=== PATIENT | female | born 1970 | race Caucasian/White ===

== ENCOUNTER 2016-07-23 10:34 | Emergency (ER) | payer BC ==
[2016-07-23 10:58] VITALS: BP 123/68
--- NOTE | 2016-07-23 12:31 | UC ---
UC General HPI - HPI Summary HPI Summary: complaint of sore on her back that she noticed 2-3 days ago slightly painful when there is pressure on it has been getting bigger and has some yellow exudate denies fever and chills used some tea tree oil on it without relief - History of Current Complaint Chief Complaint: UCSkin Stated Complaint: SORE ON BACK Time Seen by Provider: 07/23/16 12:23 Hx Obtained From: Patient - Allergy/Home Medications Allergies/Adverse Reactions: Allergies Allergy/AdvReac Type Severity Reaction Status Date / Time No Known Allergies Allergy Verified 10/07/15 22:18 PMH/Surg Hx/FS Hx/Imm Hx Previously Healthy: Yes Endocrine History Of: Denies: Diabetes, Thyroid Disease Cardiovascular History Of: Denies: Cardiac Disorders, Hypertension Respiratory History Of: Denies: COPD, Asthma GI/ History Of: Denies: Ulcer Cancer History Of: Denies: Breast Cancer - Surgical History Surgical History: None - Family History Known Family History: Negative: Cardiac Disease, Hypertension, Diabetes - Social History Occupation: Employed Full-time Lives: With Family Alcohol Use: Occasionally Substance Use Type: None Smoking Status (MU): Never Smoked Tobacco Review of Systems Constitutional: Negative Skin: Other - sore on back ENT: Negative Respiratory: Negative Cardiovascular: Negative Gastrointestinal: Negative Genitourinary: Negative Motor: Negative Neurovascular: Negative Musculoskeletal: Negative Neurological: Negative Psychological: Negative All Other Systems Reviewed And Are Negative: Yes Physical Exam Triage Information Reviewed: Yes Appearance: Well-Appearing Vital Signs: Initial Vital Signs Temp 97.7 F 07/23/16 10:54 Pulse 92 07/23/16 10:54 Resp 18 07/23/16 10:54 BP 123/68 07/23/16 10:54 Pulse Ox 100 07/23/16 10:54 Vital Signs Reviewed: Yes Eyes: Positive: Conjunctiva Clear ENT: Positive: Pharynx normal, TMs normal Neck: Positive: No Lymphadenopathy Respiratory: Positive: Lungs clear, Normal breath sounds, No respiratory distress Cardiovascular: Positive: RRR, No Murmur, Pulses Normal Abdomen Description: Positive: Nontender, Soft Bowel Sounds: Positive: Present Musculoskeletal: Positive: No Edema Psychological Exam: Normal Skin: Positive: Other - middle of back with erythematous irregular area 2cmx 1cm with crusted yellow exudate Course/Dx - Differential Dx - Multi-Symptom Differential Diagnoses: Other - abscess, cellulitis, impetigo, shingles Provider Diagnoses: impetigo Discharge - Discharge Plan Condition: Stable Disposition: HOME Prescriptions: Cephalexin CAP* [Keflex 500 CAP*] 500 mg PO TID #21 cap Mupirocin 2% OINT* [Bactroban 2 % Oint*] 1 applic TOPICAL BID #1 tube Patient Education Materials: Impetigo (ED) Referrals: Jacki Dennis LUNCHROOM SUPERVISOR [Primary Care Provider] - Additional Instructions: Start antibiotic and bactroban as directed Increase fluids and rest Take acetaminophen or ibuprofen for fever or pain Please review your discharge instructions. If your symptoms do not improve please call your primary care provider or return to urgent care
== END 2016-07-23 12:38 | disposition home or self-care (01) ==
LOC: UCEAST 10:34
DX: L01.00 Impetigo, unspecified (principal)
CPT/HCPCS: 99212; G0463

== ENCOUNTER 2017-01-28 17:44 | Emergency (ER) | payer BC ==
[2017-01-28 17:56] VITALS: BP 126/68
--- NOTE | 2017-01-28 18:58 | UC ---
Skin Complaint HPI - HPI Summary HPI Summary: Patient presents to the with CC of tick to the right mid to low back with surrounding erythema. She is unsure the length of time the tick has been attached. She notes to soreness over the area. She endorses bilaterally elbow and knee pain not improved with ibuprofen. She has been having intermittent GUTHRIE not worse or better with medication. She states she has just been feeling generally ill for 2-3 days. removed tick this am. Denies fevers, sweats or chills. - History of Current Complaint Chief Complaint: UCSkin Time Seen by Provider: 01/28/17 18:21 Stated Complaint: TICK BITE Hx Obtained From: Patient Hx Last Menstrual Period: 2 weeks ago ?: No Onset/Duration: Sudden Onset Skin Exposure Onset/Duration: Hours Ago Timing: Constant Onset Severity: Moderate Current Severity: Moderate Pain Intensity: 4 Pain Scale Used: 0-10 Numeric Location: Discrete - right mid back Aggravating Factor(s): Nothing Alleviating Factor(s): Nothing Related History: Insect Bite/Sting - Allergy/Home Medications Allergies/Adverse Reactions: Allergies Allergy/AdvReac Type Severity Reaction Status Date / Time No Known Allergies Allergy Verified 01/28/17 17:56 Review of Systems Constitutional: Negative Skin: Negative Respiratory: Negative Cardiovascular: Negative Gastrointestinal: Negative Motor: Negative Neurovascular: Negative Musculoskeletal: Negative - elbows and knees, Arthralgia Neurological: Negative Is Patient Immunocompromised?: No All Other Systems Reviewed And Are Negative: Yes PMH/Surg Hx/FS Hx/Imm Hx Previously Healthy: Yes - Surgical History Surgical History: Yes Surgery Procedure, Year, and Place: C Section - Family History Known Family History: Negative: Cardiac Disease, Hypertension, Diabetes - Social History Occupation: Employed Full-time Lives: With Family Alcohol Use: None Substance Use Type: None Smoking Status (MU): Never Smoked Tobacco Physical Exam Triage Information Reviewed: Yes Appearance: Well-Appearing, No Pain Distress, Well-Nourished Vital Signs: Initial Vital Signs Temp 98.8 F 01/28/17 17:51 Pulse 100 01/28/17 17:51 Resp 18 01/28/17 17:51 BP 126/68 01/28/17 17:51 Pulse Ox 100 01/28/17 17:51 Vital Signs Reviewed: Yes Eye Exam: Normal Eyes: Positive: Conjunctiva Clear Neck exam: Normal Neck: Positive: Nontender, No Lymphadenopathy Respiratory Exam: Normal Respiratory: Positive: Chest non-tender, Lungs clear Cardiovascular Exam: Normal Cardiovascular: Positive: RRR Musculoskeletal Exam: Normal Musculoskeletal: Positive: Strength Intact Neurological Exam: Normal Neurological: Positive: Alert Psychological: Positive: Normal Response To Family, Age Appropriate Behavior Skin: Positive: significant lesion(s) - right mid to low back measuring 4cm with surrounding erythema. No EM rash noted Course/Dx - Course Course Of Treatment: Kai is evaluated for possible lyme disease. She is having GUTHRIE and joint pains. Denies fevers, sweats and chills. She has been feeling ill x 2 days. She has had the course of doxy in the past. She is given doxycycline 14 days based on symptoms and known tick bite. She is to follow up with her PCP in 3 weeks for a lyme titer. She agrees to plan and is OK with discharge. - Differential Diagnoses - Skin Complaint Differential Diagnoses: Drug Rash, Poison [place], Poison [place], Tick Born Illness - Diagnoses Provider Diagnoses: Tick bite Discharge - Discharge Plan Condition: Stable Disposition: HOME Prescriptions: DOXYcycline CAP(*) [DOXYcycline 100MG CAP(*)] 100 mg PO BID #28 cap Patient Education Materials: Lyme Disease (ED), Tick Bite (ED) Referrals: Jacki Dennis SENIOR PRODUCT MANAGER [Primary Care Provider] - Additional Instructions: Tick Bite: Approach to prophylaxis : According to the Infectious Diseases Society of [place] (IDSA) guidelines that recommend antibiotic prophylaxis only in patients who meet all of the following criteria: 1. Attached tick identified as an adult or nymphal I. scapularis tick (deer tick). 2. Tick is estimated to have been attached for 36 hours (by degree of engorgement or time of exposure). 3. Prophylaxis is begun within 72 hours of tick removal. Local rate of infection of ticks with B. burgdorferi is 20 percent if attached for over 48 hours (these rates of infection have been shown to occur in parts of [place], parts of the [facility], and parts of [place] and [place]). If you experience a tick and time of attachment is believed to be less than 36 hours, you may remove the tick with head intact and no need for prophylaxis. If over 36 hours, please come into UC. Prophylactic doxycycline is not recommended for ticks attached less than 36 hours. Doxycycline: Take 1 cap twice daily for 14 days
== END 2017-01-28 18:36 | disposition home or self-care (01) ==
LOC: UCEAST 17:44
DX: S30.860A Insect bite (nonvenomous) of lower back and pelvis, initial encounter (principal); W57.XXXA Bitten or stung by nonvenomous insect and other nonvenomous arthropods, initial encounter; Y92.9 Unspecified place or not applicable
CPT/HCPCS: 99212; G0463

== ENCOUNTER 2018-01-16 10:03 | Observation (INO) | payer BC ==
[2018-01-16] MEDS ORDERED: Naproxen TAB* 250 MG ONE (10:59)
[2018-01-16] MEDS ORDERED: Scopolamine 1.5 mg* PATCH ONE (10:59)
[2018-01-16] MEDS ORDERED: LORazepam TAB(*) 1 MG ONE (11:00)
[2018-01-16] MEDS ORDERED: oxyCODONE SR TAB(*) 10 MG TAB.SR ONE (11:00)
[2018-01-16] MEDS ORDERED: Ondansetron INJ* 2 MG/ML VIAL ONE ×2 (11:01→14:14)
[2018-01-16 11:49] LABS: EGFR Non-African American 83.6 (>60)
[2018-01-16] MEDS ORDERED: HYDROmorphone PCA* 20 MG/20 ML PCA.SYRING PCA SCH (12:00)
[2018-01-16] MEDS ORDERED: fentaNYL* 50 MCG/ML 5 ML VIAL (250 MCG VIAL) ONE (13:39)
[2018-01-16] MEDS ORDERED: Flumazenil* 0.1 MG/ML 5 ML MDV ONE (13:39)
[2018-01-16] MEDS ORDERED: Midazolam* 1 MG/ML 10 ML VIAL (10 MG) ONE (13:39)
[2018-01-16] MEDS ORDERED: Naloxone* 0.4 MG/ML 1 ML VIAL ONE (13:39)
[2018-01-16] MEDS ORDERED: Lidocaine 1% INJ* 10 MG/ML 30 ML SDV ONE (13:40)
[2018-01-16] MEDS ORDERED: Heparin(*) 1000 UNIT/ML 10 ML VIAL CATH LAB IV ONE (13:40)
[2018-01-16] MEDS ORDERED: Iohexol 350 (CONTRAST) 200 ML MDV IV ONE (13:40)
[2018-01-16] MEDS ORDERED: Heparin 2 UNITS/ML IVPREMIX* 2,000 ML IV ONE (13:41)
[2018-01-16] MEDS ORDERED: Ketorolac INJ* 30 MG/ML 1 ML VIAL ONE ×2 (13:54→16:03)
[2018-01-16] MEDS ORDERED: nitroGLYCERIN DRIP* 25,000 MCG/250 ML BTL ONE (13:57)
[2018-01-16] MEDS ORDERED: Clindamycin 900 MG IVPREMIX(* 900 MG/50 ML SDV IV ONE (14:00)
[2018-01-16] MEDS ORDERED: HYDROmorphone PCA* 20 MG/20 ML PCA.SYRING ONE (16:33)
[2018-01-16] MEDS ORDERED: NS 0.9% 1000 ML* 1,000 ML IV SCH (18:45)
--- NOTE | 2018-01-16 19:52 | RAD ---
CPT II Codes: G9500 Procedure(s) performed: * Pelvic arteriogram including the lower abdominal aorta, bilateral iliac arteries including the proximal portions of the superficial femoral arteries and femoral profundi. * Catheter arteriography of the bilateral uterine arteries. * Catheter embolization of the bilateral uterine arteries. Date of service: January 16, 2018 Indication for procedure: Heavy menstrual bleeding, pelvic pain and urinary bladder symptoms in the presence of multiple large uterine fibroids Comparison: Pelvic ultrasound dated September 19, 2017 Contrast: 140 mL Omnipaque 350 Fluoroscopy Time: 31.7 minutes Vessels Accessed: Percutaneous access was obtained with ultrasound guidance in the right common femoral artery in the retrograde direction towards the heart. Catheter arteriography was performed with the catheter tip in the following arteries: Right external iliac artery, bilateral common iliac arteries, bilateral internal iliac arteries and bilateral uterine arteries Anesthesia: Conscious sedation with IV Fentanyl and Versed as well as local 1% lidocaine injected locally at the arteriotomy site. Conscious sedation time: Timeout: 1425 hours Case end: 1625 hours Total conscious sedation time: 2 hours Additional medications: * 700 mcg IA nitroglycerin injected intermittently throughout the course of the procedure to alleviate arterial spasm. * Intra-arterial Toradol, 15 mg injected into each uterine artery, for a total of 30 mg intra-arterial. * Intravenous Toradol, 20 mg. * Prior to the procedure the patient received: Ativan 1 mg p.o. Naproxen sodium 250 mg p.o. OxyContin 10 mg p.o. Scopolamine patch 1.5 mg transdermal applied to the mastoid process. Zofran 4 mg IV Antibiotic prophylaxis was provided by Clindamycin 900 mg IV PROCEDURE NOTE AND INTRAPROCEDURAL IMAGING FINDINGS: Immediately prior to the procedure the patient signed consent after thoroughly discussing all risks and benefits. The patient was positioned on the fluoroscopy table in the supine position and the bilateral groins were shaved, prepped and draped in standard sterile fashion. In the holding area sonographic imaging of the patient's right radial and ulnar arteries was obtained at the bedside for the purpose of possible radial access. The right radial and ulnar arteries measure 0.18 cm and 0.15 cm respectively. Due to the small caliber, radial access was declined. Using fluoroscopic imaging the location of the right common femoral head was marked externally with a skin marker on the patient's groin. Utilizing sonographic guidance and palpation the right common femoral artery was cannulated overlying the right femoral head with an 18-gauge needle. An ultrasound image was saved. A 0.035 inch Conduit Labsson wire was slowly and smoothly advanced to the aortic bifurcation under fluoroscopic imaging. No buckling of the wire was visualized to indicate dissection. Over the wire a 5-Malian SideArm sheath was advanced into the artery, the inner stiffener removed and contrast arteriography with the tip of the sheath in the right external iliac artery demonstrated appropriate right common femoral arteriotomy with no signs of extravasation or dissection. Utilizing a 0.035" wire and 5-Malian C2 catheter the contralateral left common iliac artery was accessed. Contrast arteriography with the tip of the catheter in the right common femoral artery demonstrates the right iliac arterial system including the right uterine artery. A 0.035 inch hydrophilic wire was readvanced into the catheter. The wire was advanced under fluoroscopic control to the proximal left superficial femoral artery. The C2 catheter was removed and over the wire a 5 Malian Merit Impress catheter was advanced over the iliac bifurcation and the reverse curve was formed in the lower abdominal aorta. Utilizing the reverse curve catheter and the wire the ipsilateral right common iliac artery was selected. With the tip of the catheter in the proximal most portion of the right internal iliac artery, angiography was performed to detail the branches of the right internal iliac artery and to locate the ostium of the right uterine artery. Arteriograms in multiple oblique projections were performed to best discern the branch point of the uterine artery. The uterine artery was selected and cannulated utilizing the combination 0.035" wire and 5-Malian catheter. In order to ensure maximum arterial inflow for the purpose of particle distribution, a microcatheter and wire system were advanced into the 5-Malian catheter securing access into the uterine artery. Under careful fluoroscopic control access was maintained in the uterine artery while pushing back the 5-Malian catheter until the tip resided more superiorly in the internal iliac artery. Prior to embolization, contrast injection into the horizontal portion of the uterine artery demonstrated no large, obvious collateral blood flow to the ovary or a definite cervicovaginal branch descending inferiorly. Intra-arterial nitroglycerin was injected intermittently to alleviate arterial spasm. Under fluoroscopic control approximately 3 vials 600 micron HydroPearls and 2 vials 800 um HydroPearls were slowly injected into the right uterine artery to near complete stasis. Towards the end of embolization 15 mg of Toradol was injected intra-arterially. The microcatheter was pulled back into the more proximal descending portion of the uterine artery and contrast angiography depicted near complete stasis of the uterine artery. The microcatheter and microwire were removed. Contrast arteriography through the 5-Malian catheter in the right internal iliac artery demonstrated patency and brisk flow through all branches of the internal iliac artery with the exception of the right uterine artery which demonstrates near complete stasis. The 0.035" wire was reinserted into the 5-Malian catheter and the system was utilized to access the contralateral left internal iliac artery. Ovary hydrophilic wire, the Impress was exchanged for the 5-Malian C2 catheter. With the tip of the 5 Malian C2 catheter in the proximal most portion of the left internal iliac artery, angiography was performed to detail the branches of the left internal iliac artery and to locate the ostium of the left uterine artery. Arteriograms in multiple oblique projections were performed to best discern the branch point of the uterine artery. The uterine artery was selected and cannulated utilizing the combination 0.035" wire and 5-Malian catheter. In order to ensure maximum arterial inflow for the purpose of particle distribution, the microcatheter and wire system were advanced into the 5-Malian catheter securing access into the uterine artery. Under careful fluoroscopic control access was maintained in the uterine artery while pushing back the 5-Malian catheter until the tip resided more superiorly in the internal iliac artery. Prior to embolization, contrast injection into the horizontal portion of the left uterine artery demonstrated no large, obvious collateral blood flow to the ovary or a definite cervicovaginal branch descending inferiorly. Intra-arterial nitroglycerin was injected intermittently to alleviate arterial spasm. Under fluoroscopic control approximately 1 vial 600 micron HydroPearls and almost 2 vials 800 um HydroPearls (satisfactory stasis was achieved before injecting the entire contents of the second vial) were slowly injected into the left uterine artery to near complete stasis. Towards the end of embolization 15 mg of Toradol was injected intra-arterially. The microcatheter was pulled back into the more proximal descending portion of the uterine artery and contrast angiography depicted near complete stasis of the uterine artery. The microcatheter and microwire were removed. Contrast arteriography through the 5-Malian catheter in the left internal iliac artery demonstrated patency and brisk flow through all branches of the internal iliac artery with the exception of the left uterine artery which demonstrates near complete stasis. A 0.035 inch wire was reinserted into the 5-Malian C2 catheter and both were removed. The access sheath was removed and pressure was held at the common femoral arteriotomy for approximately 15 minutes. There were no signs of bleeding at the right groin access site and the site was dressed with sterile gauze and Tegaderm. The patient tolerated the procedure well and was transferred to the short stay recovery unit in stable condition for routine overnight observation and pain and nausea control. SUMMARY OF PROCEDURE, IMAGING FINDINGS AND INTERVENTIONS PERFORMED: 1. Diagnostic studies performed: * Arterial access was obtained at the right common femoral artery in the retrograde direction (i.e. towards the heart) with ultrasound guidance. A sonographic image was recorded. * Diagnostic catheter angiography (necessary to perform the appropriate interventions) was performed with the catheter tip in the bilateral common iliac arteries, bilateral internal iliac arteries and bilateral uterine arteries. * Catheter arteriography was performed of the bilateral iliac arterial system and specifically the bilateral uterine arteries. 2. Interpretation of diagnostic studies performed: * Right dominant, hypertrophied uterine arteries bilaterally providing arterial flow to the patient's fibroid uterus. 3. Surgical interventions performed: * Near stasis embolization of the bilateral uterine arteries utilizing: * Right uterine artery: 3 vials 600 micron HydroPearls and 2 vials 800 um HydroPearls * Left uterine artery: 1 vial 600 micron HydroPearls and < 2 vials 800 um HydroPearls 4. Interpretation of interventions performed: * Final arteriography demonstrated near complete stasis of the bilateral uterine arteries.. PLAN: 1. The patient will be admitted to short stay surgical unit for routine overnight observation including pain and nausea control. 2. Outpatient clinical and imaging follow-up according to the Interventional Radiology protocol.
--- NOTE | 2018-01-16 20:05 | PN ---
Progress Note - Progress Note Date of Service: 01/16/18 SOAP: Subjective: Pain rated at 2/10, "crampy, but not too bad". Episodes of nausea (now passed), but no emesis. Has drank clear fluids so far. Clear yellow urine in Daily bag. Objective: Selected Entries 01/16/18 01/16/18 18:33 19:41 Temperature 98.4 F Temperature Oral Source Pulse Rate 78 Respiratory 18 Rate Blood Pressure 108/55 (mmHg) O2 Sat by Pulse 96 Oximetry NAD, Sleep, but arousable to voice Abd is soft, minimally tender to palpation over suprapubic area Right groin is soft, nontender Dressing is CDI 2+ pulses at right [employer], pop and dpa Right leg is grossly neuromuscular intact Assessment: 47 YOF s/p Uterine Fibroid Arterial Embolization. Pain and nausea are adequately controlled. Plan: 1. Standard Interventional Radiology post UFE management as well as pain & nausea control. 2. Bedrest ends at 2200 hours. Daily catheter will be removed at the same time. 3. Will see patient tomorrow AM.
[2018-01-16] MEDS: Ketorolac INJ* 15 MG/ML 1 ML VIAL IV PUSH SCH (21:52)
[2018-01-16] MEDS: Ondansetron INJ* 2 MG/ML VIAL IV SCH (21:54)
--- NOTE | 2018-01-16 22:01 | HP ---
ADMITTING HISTORY AND PHYSICAL: DATE OF ADMISSION: 01/16/18 CHIEF COMPLAINT: Elective uterine artery embolization. HISTORY OF PRESENT ILLNESS: The patient is a 47-year-old obese lady with no documented nor significant past medical history, who was recently by her primary care physician for preoperative evaluation for uterine artery embolization due to her dysmenorrhea due to uterine fibroids and she underwent embolization of her uterine artery and per Dr. Maya has done well perioperatively. She was in PACU with stable vital signs and feeling well except for complaints of cramping sensation around her hypogastric area. PAST MEDICAL AND SURGICAL HISTORY: Status post section x1. No documented past medical or other surgical history noted. HOME MEDICATIONS: None. ALLERGIES: None/NKDA. FAMILY HISTORY: Diabetes and heart disease, both her mother and maternal grandfather. SOCIAL HISTORY: Denies any history of smoking, alcohol abuse or IV drug use. She is and lives with her and 6 children. REVIEW OF SYSTEMS: Intermittent cramping sensation on her hypogastric area, otherwise denied any recent headaches, dizziness, fevers, chills, nausea, vomiting, chest pain, shortness of breath, increased cough nor sputum production , diarrhea, constipation, pain and/or increased frequency on urination, myalgias , arthralgias, throat pain, or new skin lesions. The rest of the 14-point review of systems are otherwise unremarkable. PHYSICAL EXAMINATION GENERAL APPEARANCE: The patient is awake, alert, and oriented x1, not in acute distress, the patient is morbidly obese VITAL SIGNS: Shows the most recent vital signs of record with blood pressure of 125/68, 97% saturation at 3 L nasal cannula, 76 beats per minute heart rate. HEENT: Normocephalic, atraumatic. PERRLA. Extraocular muscles intact. Negative for icterus. Moist oral mucosa. Negative throat erythema. NECK: Soft, supple with no cervical lymphadenopathy. No JVD. CHEST: Clear to auscultation bilaterally. Good air entry. No wheezes, rales, or rhonchi. HEART: S1, S2 within normal limits. Regular rate and rhythm. No murmurs, rubs , or gallops. ABDOMEN: Soft, nondistended, nontender. Normoactive bowel sounds x4. EXTREMITIES: No cyanosis, clubbing, or edema. PSYCHIATRIC: No active psychosis, depression, suicidal or homicidal ideations. SKIN: Warm to touch. LABORATORIES AND RADIOLOGICAL DATA: Most recent pertinent laboratories reveals a sodium and potassium of 139 and 4.1, BUN and creatinine of 9 and 0.7. Beta HCG is less than 0.6. ASSESSMENT AND PLAN: The patient is a 47-year-old morbidly obese lady with no other documented past medical history other than fibroids leading to dysmenorrhea leading to anemia status post UFE. 1. Uterine fibroid status post UFE. I have discussed her case with Dr. Maya and we will admit the patient for observation overnight. We will place the patient in overnight telemetry in short-stay surgical unit and will check morning labs. We will touch base with Dr. Maya in the a.m. for possible discharge in the a.m. 2. DVT prophylaxis. We will place the patient on SCDs. 5. Disposition. For PT eval, for discharge planning, for possible discharge in the a.m. [id number]/[facility] #: [id number] MTDD
[2018-01-17] MEDS: Ketorolac INJ* 15 MG/ML 1 ML VIAL IV PUSH SCH (05:27)
[2018-01-17] MEDS: Ondansetron INJ* 2 MG/ML VIAL IV SCH (05:30)
[2018-01-17 06:25] LABS: Hematocrit 27 % (35-47); Hemoglobin 8.3 g/dl (12.0-16.0); Mean Corpuscular HGB Conc 31 g/dl (31-36); Mean Corpuscular Hemoglobin 23 pg (27-31); Mean Corpuscular Volume 74 fL (80-97); Mean Platelet Volume 8.5 um3 (7.4-10.4); Platelet Count 408 10^3/ul (150-450); Red Cell Distribution Width 20 % (10.5-15); White Blood Count 12.7 10^3/ul (3.5-10.8)
[2018-01-17 06:43] LABS: EGFR Non-African American 102.2 (>60)
[2018-01-17] MEDS ORDERED: Calcium Gluconate INJ* 2 GM in NS 0.9% 100 ML* 100 ML IV ONE (07:42)
[2018-01-17] MEDS ORDERED: HYDROcodone/ACETAMIN 5-325 MG* 1 TAB PO PRN (08:36)
[2018-01-17] MEDS ORDERED: Ondansetron TAB* 4 MG PO SCH (08:45)
[2018-01-17] MEDS ORDERED: Ketorolac TAB * 10 MG TAB PO SCH (08:45)
--- NOTE | 2018-01-17 08:56 | PN ---
Progress Note - Progress Note Date of Service: 01/17/18 SOAP: Subjective: According to the patient's nurse (Tanna glass and [place] today) the patient has been drinking clear fluids and eating crackers. Pain and nausea is controlled. Patient denies right groin pain. Objective: Selected Entries 01/17/18 01/17/18 04:23 06:00 Temperature 97.7 F Temperature Temporal Artery Source Scan Pulse Rate 72 Respiratory 18 Rate Blood Pressure 107/55 (mmHg) Blood Pressure 67 Mean O2 Sat by Pulse 99 Oximetry Assessment: 47 YOF POD #1 s/p Uterine Fibroid Arterial Embolization with controlled pain and nausea. Post UFE care discussed with Dr. Martins. Plan: 1. Routine Interventional Radiology follow up will include RN clinic follow up telephone calls 01/19/18 and Friday. 01/23/18. Follow up in the clinic with Dr. Maya will be scheduled in 6 weeks and 6 months. 2. Outpatient Rx regimen will include: Toradol 10 mg PO Q 6 hours x 3 days, dispense #15, 1 refill AFTER 3 days of Toradol, start Naproxen 250 mg PO every 12 hours x 3 days (DO NOT COMBINE TORADOL AND NAPROXEN) [place] 5/325 1 or 2 tablets PO Q 6 hours PRN x 5 days, dispense #30 (thirty), no refills Zofran 4 mg PO Q 6 hours x 5 days, dispense #30, 1 refill Scopoloamine 1.5 mg TD patch: on the morning of Friday, replace current patch with new patch and wear x 3 days 3. Patient strongly advised to purchase laxative tea (E.g. Smooth Move) and drink one cup daily x 1 week to avoid constipation.
[2018-01-17 10:28] VITALS: BP 109/50
--- NOTE | 2018-01-17 20:50 | DS ---
CC: Dr. Maya; Jacki Dennis NP DISCHARGE SUMMARY: DATE OF ADMISSION: 01/17/18 DISCHARGE DIAGNOSES: 1. Uterine fibroids, status post uterine fibroid embolization. 2. Hypocalcemia, corrected. 3. Anemia, iron studies pending. The patient has home ferrous sulfate supplementation likely due to diagnosed iron deficiency anemia, as mentioned iron studies pending along with B12 and folate levels. 4. Leukocytosis, likely reactive post uterine fibroid embolization. HISTORY OF PRESENT ILLNESS/HOSPITAL COURSE: The patient is a 47-year-old obese lady with no documented nor significant past medical history, other than possible iron deficiency anemia, who underwent elective embolization for uterine artery due to dysmenorrhea secondary to uterine fibroids. Her perioperative course was otherwise unremarkable and I had discussed her case prior to her discharge with Dr. Maya, who recommended the medications stipulated below in addition to continuing her home medications, which is only ferrous sulfate. Also discussed the mild leukocytosis the patient has POD #1 who mentioned that this is not unusual post UFE and likely indicative of reactive leukocytosis as previously discussed. The patient had been advised to follow Dr. Maya's discharge instruction as had been given to her to take her medications as prescribed and to follow up with her PCP within three days post DC and to follow up on the results of the iron studies, B12, and folate levels. REVIEW OF SYSTEMS: The patient denied any recent headaches, dizziness, fevers, chills, nausea, vomiting, chest pain, shortness of breath, increased cough, sputum production, abdominal pain, diarrhea, constipation, pain, and/or increased frequency of urination, myalgias, arthralgias, throat pain or new skin lesions. The rest of the 14-point review of systems are otherwise unremarkable. PHYSICAL EXAMINATION: GENERAL APPEARANCE: The patient is awake, alert, and oriented x3, not in acute distress, the patient is obese. VITAL SIGNS: Reveals the most recent vital signs of records with blood pressure of 109/50, saturating at 100% on room air, 16 per minute respiratory rate, 72 beats per minute heart rate, temperature of 98.5 degrees Fahrenheit. HEENT: Normocephalic, atraumatic. PERRLA. Extraocular muscles intact. Negative for icterus. Moist oral mucosa. Negative throat erythema. NECK: Soft, supple with no cervical lymphadenopathy. No JVD. CHEST: Clear to auscultation bilaterally. Good air entry. No wheezes, rales, or rhonchi. HEART: S1, S2 within normal limits. Regular rate and rhythm. No murmurs, rubs , or gallops. ABDOMEN: Soft, nondistended, nontender. Normoactive bowel sounds x4Q. EXTREMITIES: No cyanosis, clubbing, or edema. PSYCHIATRIC: No active psychosis, depression, suicidal nor homicidal ideations. SKIN: Warm to touch. DISCHARGE MEDICATIONS: Are as follows: 1. Woodland 5/325 two tab p.o. q.6 p.r.n. 16 tabs dispensed with 0 refills; the patient had been advised to call either her PCP and/or Dr. Maya if she will need refills for Woodland. 2. Ketorolac 10 mg p.o. q.6. p.r.n., dispensed 12 with refills of 0. 3. Zofran 4 mg p.o. q.6 p.r.n. for five days, dispensed 20. 4. Ferrous sulfate 325 mg p.o. daily. 5. Naproxen 250 mg p.o. b.i.d. for three days. 6. Ondansetron 4 mg p.o. q.6 p.r.n. for five days, dispensed 20 tabs with 0 refills. 7. Scopolamine 1.5 mg patch q.72 hours two patches dispensed with 0 refills. TIME SPENT: Total time spent evaluating the patient, reviewing pertinent data and appropriate documentation is 40 minutes. [id number]/[facility] #: [id number] [facility]
== END 2018-01-17 13:00 | disposition home or self-care (01) ==
LOC: CHICATH 10:03 → SSU 17:58
PROVIDERS: ADMIT Student in an Organized Health Care Education/Training Program; ATTEND Student in an Organized Health Care Education/Training Program
DX: D25.9 Leiomyoma of uterus, unspecified (principal); E83.51 Hypocalcemia; D64.9 Anemia, unspecified; D72.829 Elevated white blood cell count, unspecified; Z79.899 Other long term (current) drug therapy; Z83.3 Family history of diabetes mellitus; Z82.49 Family history of ischemic heart disease and other diseases of the circulatory system
CPT/HCPCS: 36415; 37243; 75736; 76937; 80048; 80053; 82330; 82607; 82728; 82746; 83540; 83550; 83735; 84100; 84702; 85027; 96365; 96375; 96376; 99156; 99157; A9270-GY; C1884; C1887; G0378; J0610; J1170; J1644; J1885; J2250; J2310; J2405; J3010

== ENCOUNTER 2018-08-31 18:06 | Emergency (ER) | payer BC ==
[2018-08-31 18:46] VITALS: BP 135/83
--- NOTE | 2018-08-31 19:30 | UC ---
Dental HPI - HPI Summary HPI Summary: 48 yo female presents with tooth pain. She admits that she has "bad teeth" and has a broken tooth at the back lower left. Over the last 3 days has developed pain and swelling to the area. She made an appointment with her dentist, but they cannot see her for 1 month. She is tolerating po well. Denies fever or chills. - History of Current Complaint Chief Complaint: UCDentalProblem Stated Complaint: TOOTHACHE Time Seen by Provider: 08/31/18 19:30 Hx Obtained From: Patient Hx Last Menstrual Period: [id number] Onset/Duration: Gradual Onset Severity: Severe Pain Intensity: 9 Pain Scale Used: 0-10 Numeric - Allergies/Home Medications Allergies/Adverse Reactions: Allergies Allergy/AdvReac Type Severity Reaction Status Date / Time No Known Allergies Allergy Verified 08/31/18 18:46 Home Medications: Home Medications Naproxen [Naproxen 250 mg tab] 250 mg PO BID PRN 08/31/18 [History Confirmed 10/14] PMH/Surg Hx/FS Hx/Imm Hx - Additional Past Medical History Additional PMH: ROMI - Surgical History Surgical History: Yes Surgery Procedure, Year, and Place: C Section- 1x - Family History Known Family History: Negative: Cardiac Disease, Hypertension, Diabetes - Social History Lives: With Family Alcohol Use: Rare Substance Use Type: None Smoking Status (MU): Never Smoked Tobacco Review of Systems All Other Systems Reviewed And Are Negative: Yes Constitutional: Positive: Negative Skin: Positive: Negative Eyes: Positive: Negative ENT: Positive: Dental Pain Respiratory: Positive: Negative Cardiovascular: Positive: Negative Neurological: Positive: Negative Psychological: Positive: Negative Physical Exam - Summary Physical Exam Summary: GENERAL: NAD. WDWN. No pain distress. SKIN: No rashes, sores, lesions, or open wounds. HEENT: Head: AT/NC Nose: Nasal mucosa pink and moist. NTTP maxillary and frontal sinus. Throat: Posterior oropharynx without exudates, erythema, or tonsillar enlargement. Uvula midline. NECK: Supple. Nontender. No lymphadenopathy. CHEST: No accessory muscle use. Breathing comfortably and in no distress. CV: Pulses intact. Cap refill <2seconds NEURO: Alert. PSYCH: Age appropriate behavior. Triage Information Reviewed: Yes Vital Signs: Initial Vital Signs Temp 97.9 F 08/31/18 18:43 Pulse 84 08/31/18 18:43 Resp 20 08/31/18 18:43 BP 135/83 08/31/18 18:43 Pulse Ox 100 08/31/18 18:43 Vital Signs Reviewed: Yes Dental: Positive: Percussion Tenderness @ - Tooth #31, Gross Decay/Caries @ - throughout, Dental Fracture @ - Tooth #31, Abscess @ - Tooth #31 Dental Complaint Course/Dx - Course Course Of Treatment: Tooth #31 abscess - Differential Dx/Diagnosis Provider Diagnosis: Abscess, dental Discharge - Sign-Out/Discharge Documenting (check all that apply): Patient Departure All imaging exams completed and their final reports reviewed: No Studies - Discharge Plan Condition: Stable Disposition: HOME Prescriptions: Amoxicillin PO (*) [Amoxicillin 500 MG CAP*] 500 mg PO Q12H #14 cap Chlorhexidine MW 0.12% 473ML* [Peridex Mouth Wash 0.12%] 15 ml SWISH SPIT BID # 1 btl Patient Education Materials: Dental Abscess (ED) Referrals: Jacki Dennis COMPOSITION MOLDER [Primary Care Provider] - Additional Instructions: If you develop a fever, shortness of breath, chest pain, new or worsening symptoms - please call your PCP or go to the ED immediately. Please keep your appointment with your dentist for next month for further treatment of your tooth - Billing Disposition and Condition Condition: STABLE Disposition: Home
== END 2018-08-31 19:39 | disposition home or self-care (01) ==
LOC: UCEAST 18:06
DX: K04.7 Periapical abscess without sinus (principal); K03.81 Cracked tooth; K02.9 Dental caries, unspecified; D50.9 Iron deficiency anemia, unspecified
CPT/HCPCS: 99212; G0463

== ENCOUNTER 2018-10-29 12:26 | Emergency (ER) | payer BC ==
[2018-10-29 12:54] VITALS: BP 112/61
--- NOTE | 2018-10-29 13:51 | UC ---
Dental HPI - HPI Summary HPI Summary: Has bad teeth and concerned she has an abscess . She has a dentist and is in process of getting teeth removed but has stopped mid way through planned tx due to cost. Of note has had multipel antibx prescriptions. - History of Current Complaint Chief Complaint: UCDentalProblem Stated Complaint: TOOTH ACHE Time Seen by Provider: 10/29/18 13:44 Hx Obtained From: Patient Hx Last Menstrual Period: 10/22/18 Pain Intensity: 4 Pain Scale Used: 0-10 Numeric Aggravating Factor(s): Chewing Alleviating Factor(s): Nothing - Allergies/Home Medications Allergies/Adverse Reactions: Allergies Allergy/AdvReac Type Severity Reaction Status Date / Time No Known Allergies Allergy Verified 10/29/18 12:55 PMH/Surg Hx/FS Hx/Imm Hx Previously Healthy: Yes Endocrine History: Other - obesity - Surgical History Surgical History: Yes Surgery Procedure, Year, and Place: C Section- 1x - Family History Known Family History: Negative: Cardiac Disease, Hypertension, Diabetes - Social History Alcohol Use: Rare Substance Use Type: None Smoking Status (MU): Never Smoked Tobacco Review of Systems All Other Systems Reviewed And Are Negative: Yes Constitutional: Negative: Fever ENT: Positive: Dental Pain. Negative: Ear Ache Respiratory: Positive: Negative Cardiovascular: Positive: Negative Physical Exam Triage Information Reviewed: Yes Appearance: Well-Appearing Vital Signs: Initial Vital Signs Temp 98 F 10/29/18 12:52 Pulse 82 10/29/18 12:52 Resp 16 10/29/18 12:52 BP 112/61 10/29/18 12:52 Pulse Ox 99 10/29/18 12:52 Vital Signs Reviewed: Yes ENT: Positive: Pharynx normal Dental: Positive: Abscess @ - R lower, Other: - +poor dentition, no TRISMUS Neck: Positive: Supple, Nontender, No Lymphadenopathy Dental Complaint Course/Dx - Course Course Of Treatment: R lower toothe ache started a week ago but has poor dentition and tooth pain is chronic at this point. IN process of seeing dental for many procedures and have explained that this will become recurrent if the dental procedures are not completed. she verbalized understanding. Vitals good. - Differential Dx/Diagnosis Differential Diagnosis/Dx: Dental Abscess, Dental Caries, Fractured Tooth Provider Diagnosis: Tooth abscess Discharge - Sign-Out/Discharge Documenting (check all that apply): Patient Departure All imaging exams completed and their final reports reviewed: No Studies - Discharge Plan Condition: Good Disposition: HOME Prescriptions: Amoxicillin/Clavulanate TAB* [Augmentin TAB 875*] 875 mg PO BID 7 Days #14 tab Patient Education Materials: Toothache (ED) Referrals: Jacki Dennis LAND ECONOMIST [Primary Care Provider] - Additional Instructions: You have been given a one week prescription of antibiotics in the hopes that the dental office can see you soon to fix the root cause of this problem. It is not safe to take antibiotics this often. - Billing Disposition and Condition Condition: GOOD Disposition: Home
== END 2018-10-29 14:02 | disposition home or self-care (01) ==
LOC: UCEAST 12:26
DX: K04.7 Periapical abscess without sinus (principal); E66.9 Obesity, unspecified
CPT/HCPCS: 99212; G0463

== ENCOUNTER 2019-04-25 16:47 | Emergency (ER) | payer BC ==
[2019-04-25 16:57] VITALS: BP 144/85
--- NOTE | 2019-04-25 17:13 | UC ---
Skin Complaint HPI - HPI Summary HPI Summary: red itchy not raise vesicular or pustular rash on abdomen graoin---patient is not other hogue ill nor had any illness exposure---rash has been present for about 10 days---patient reports no new products,foods or exposures - History of Current Complaint Chief Complaint: UCRash Time Seen by Provider: 04/25/19 17:02 Stated Complaint: RASH Hx Obtained From: Patient Hx Last Menstrual Period: 03/21/19 ?: No Onset/Duration: Sudden Onset, Lasting Days - 10, Still Present Timing: Constant Pain Intensity: 2 Pain Scale Used: 0-10 Numeric Location: Diffuse Character: Redness Aggravating Factor(s): Nothing Alleviating Factor(s): Nothing Associated Signs & Symptoms: Positive: Rash. Negative: Fever, Chills, Drainage , Red Streaks - Allergy/Home Medications Allergies/Adverse Reactions: Allergies Allergy/AdvReac Type Severity Reaction Status Date / Time No Known Allergies Allergy Verified 04/25/19 16:56 PMH/Surg Hx/FS Hx/Imm Hx Previously Healthy: Yes - Surgical History Surgical History: Yes Surgery Procedure, Year, and Place: C Section- 1x - Family History Known Family History: Negative: Cardiac Disease, Hypertension, Diabetes - Social History Occupation: Works From/At Home Lives: With Family Alcohol Use: Rare Substance Use Type: None Smoking Status (MU): Never Smoked Tobacco Review of Systems All Other Systems Reviewed And Are Negative: Yes Constitutional: Positive: Negative Skin: Positive: Rash Eyes: Positive: Negative ENT: Positive: Negative Respiratory: Positive: Negative Cardiovascular: Positive: Negative Gastrointestinal: Positive: Negative Genitourinary: Positive: Negative Motor: Positive: Negative Neurovascular: Positive: Negative Musculoskeletal: Positive: Negative Neurological: Positive: Negative Psychological: Positive: Negative Is Patient Immunocompromised?: No Physical Exam Triage Information Reviewed: Yes Appearance: Well-Appearing, No Pain Distress, Well-Nourished Vital Signs: Initial Vital Signs Temp 98.5 F 04/25/19 16:52 Pulse 74 04/25/19 16:52 Resp 16 04/25/19 16:52 BP 144/85 04/25/19 16:52 Pulse Ox 99 04/25/19 16:52 Vital Signs Reviewed: Yes Eye Exam: Normal Eyes: Positive: Conjunctiva Clear ENT Exam: Normal ENT: Positive: Normal ENT inspection, Hearing grossly normal. Negative: Trismus , Muffled voice, Hoarse voice Dental: Positive: Gross Decay/Caries @ Neck exam: Normal Neck: Positive: Supple, Nontender, No Lymphadenopathy Respiratory Exam: Normal Respiratory: Positive: Chest non-tender, No respiratory distress, No accessory muscle use Cardiovascular Exam: Normal Cardiovascular: Positive: RRR, Pulses Normal, Brisk Capillary Refill Musculoskeletal Exam: Normal Musculoskeletal: Positive: Strength Intact, ROM Intact, No Edema Neurological Exam: Normal Neurological: Positive: Alert, Muscle Tone Normal Psychological Exam: Normal Skin: Positive: Rashes - not raised blanching on chest abdomen Course/Dx - Course Course Of Treatment: cool compress, pepcid, benadryl, short course of prednisone follow with pcp - Diagnoses Provider Diagnosis: Contact allergic reaction Discharge ED - Sign-Out/Discharge Documenting (check all that apply): Patient Departure All imaging exams completed and their final reports reviewed: No Studies - Discharge Plan Condition: Stable Disposition: HOME Prescriptions: Famotidine TAB 40 MG(NF) [Pepcid TAB 40 MG(NF)] 40 mg PO DAILY #7 tab predniSONE [Prednisone 20 MG TAB] 20 mg PO DAILY #9 tablet Patient Education Materials: Diphenhydramine (By mouth), Contact Dermatitis (ED ), Hypertension (ED) Referrals: Jacki Dennis TRIM DIE MAKER [Primary Care Provider] - 3 Days - Billing Disposition and Condition Condition: STABLE Disposition: Home - Attestation Statements Provider Attestation: Per institutional requirements, I have reviewed the chart, however, I was not consulted specifically or made aware of this patient by the midlevel provider. I did not personally evaluate, interact with , or disposition this patient.
== END 2019-04-25 17:21 | disposition home or self-care (01) ==
LOC: UCEAST 16:47
DX: T78.49XA Other allergy, initial encounter (principal); X58.XXXA Exposure to other specified factors, initial encounter
CPT/HCPCS: 99212; G0463